=== PATIENT | female | born 1970 | race Caucasian/White ===

== ENCOUNTER 2018-06-17 16:55 | Emergency (ER) | payer MEDICAID ==
[2018-06-17] MEDS: IBUPROFEN 600 MG TAB PO (21:26)
== END 2018-06-17 23:40 | disposition home or self-care (01) ==
LOC: FTE 16:55
DX: M79.644 Pain in right finger(s) (principal); I10 Essential (primary) hypertension
CPT/HCPCS: 73130; 73130-RT; 99283-25